=== PATIENT | female | born 1955 | race Caucasian/White ===

== ENCOUNTER 2021-08-20 18:26 | Emergency (ER) | payer OTHER ==
[~2021-08-20] VITALS: Ht 157.5 cm; Wt 63.5 kg
[2021-08-20] MEDS ORDERED: AMLODIPINE-OLM1 EAC2 PO (18:36)
[2021-08-20] MEDS ORDERED: PRAVASTATIN SOD10 MG PO (18:37)
== END 2021-08-20 22:06 | disposition home or self-care (01) ==
LOC: ER 18:26
DX: S93.105A Unspecified dislocation of left toe(s), initial encounter (principal); X58.XXXA Exposure to other specified factors, initial encounter; Y92.59 Other trade areas as the place of occurrence of the external cause; Z88.0 Allergy status to penicillin